=== PATIENT | male | born 2000 | race African-American/Black ===

== ENCOUNTER 2024-02-03 10:12 | Emergency (ER) | payer SELFPAY ==
[~2024-02-03] VITALS: Ht 175.3 cm; Wt 67.0 kg
[2024-02-03 10:19] VITALS: O2SAT 98
[2024-02-03] MEDS ORDERED: IBUP-2029 MT (11:04)
[2024-02-03 11:43] VITALS: BP 121/61; PULSE 58; RESP 16; TEMP 36.78072; O2SAT 98
== END 2024-02-03 12:31 | disposition home or self-care (01) ==
LOC: ER 10:12
DX: S93.402A Sprain of unspecified ligament of left ankle, initial encounter (principal); X58.XXXA Exposure to other specified factors, initial encounter; Y93.66 Activity, soccer; Y92.89 Other specified places as the place of occurrence of the external cause; Y99.8 Other external cause status
CPT/HCPCS: 73610; 99283

== ENCOUNTER 2024-09-26 23:02 | Emergency (ER) | payer SELFPAY ==
[~2024-09-26] VITALS: Ht 175.3 cm; Wt 71.0 kg
[~2024-09-26 23:02] MED LIST: IBUP-2029 MT
[2024-09-26 23:18] VITALS: O2SAT 100
[2024-09-27] MEDS ORDERED: CEPH500C2 MT (00:35)
[2024-09-27 00:53] VITALS: BP 128/74; PULSE 57; RESP 17; TEMP 37; O2SAT 100
== END 2024-09-27 00:55 | disposition home or self-care (01) ==
LOC: ER 23:02
DX: M79.675 Pain in left toe(s) (principal); Z79.899 Other long term (current) drug therapy
CPT/HCPCS: 73630; 99283